=== PATIENT | male | born 1990 | race Caucasian/White ===

== ENCOUNTER 2016-04-16 12:47 | Emergency (ER) | payer SELFPAY ==
[2016-04-16] MEDS ORDERED: Benzocaine 20% Topical Spray UD MUCMEM ONE (13:30)
[2016-04-16] MEDS ORDERED: Lidocaine 2% Viscous Solution 15 ML Cup PO ONE (13:30)
--- NOTE | 2016-04-16 13:36 | EDM.PDOC ---
ED HPI GENERAL MEDICAL PROBLEM - General Chief Complaint: General Stated Complaint: ABSCESS TOOTH Time Seen by Provider: 04/16/16 13:01 Source of Information: Reports: Patient History Limitations: Reports: No limitations - History of Present Illness INITIAL COMMENTS - FREE TEXT/NARRATIVE: History of present illness: [] Patient has had 2 months of a dental abscess and dental pain. He has no money see a dentist and he has been coming here for pain medicine and antibiotics. Patient states he's been on antibiotics for 2 months but ran out. Denies any fevers, chills, facial swelling difficulty breathing or difficulty swallowing Review of systems: As per history of present illness and below otherwise all systems reviewed and negative. Past medical history: As per history of present illness and as reviewed below otherwise noncontributory. Surgical history: As per history of present illness and as reviewed below otherwise noncontributory. Social history: No reported history of drug or alcohol abuse. Family history: As per history of present illness and as reviewed below otherwise noncontributory. Physical exam: General: Well developed, well nourished in NAD HEENT: Atraumatic, normocephalic, pupils reactive, negative for conjunctival pallor or scleral icterus, mucous membranes moist, throat clear, neck supple, nontender, trachea midline. Poor dentition there is no edema, drainage or a erythema of the gums surrounding the tooth in question which is in his left lower molar Lungs: Clear to auscultation, breath sounds equal bilaterally, chest nontender. Heart: S1S2, regular, negative for clicks, rubs, or JVD. Abdomen: Soft, nondistended, nontender. Negative for masses or hepatosplenomegaly. Negative for costovertebral tenderness. Pelvis: Stable nontender. Genitourinary: Deferred. Rectal: Deferred. Extremities: Atraumatic, negative for cords or calf pain. Neurovascular unremarkable. Neuro: Awake, alert, oriented. Cranial nerves II through XII unremarkable. Cerebellum unremarkable. Motor and sensory unremarkable throughout. Exam nonfocal. Diagnostics: [] Therapeutics: [] Dental balls for pain control Impression: [] Multiple dental caries without abscess Plan: [] All of dentist Definitive disposition and diagnosis as appropriate pending reevaluation and review of above. dental Pain Score (Numeric/FACES): 9 - Related Data Allergies Allergy/AdvReac Type Severity Reaction Status Date / Time No Known Allergies Allergy Verified 04/16/16 12:56 Home Meds: Home Meds . [No Known Home Meds] 06/13/15 [History] Past Medical History HEENT History: Reports: None Cardiovascular History: Reports: Other (see below) Other Cardiovascular History: "bicuspid aortic valve" Gastrointestinal History: Reports: None Genitourinary History: Reports: None Psychiatric History: Reports: None Dermatologic History: Reports: Other (see below) Other Dermatologic History: scabies - Infectious Disease History Infectious Disease History: Reports: None - Past Surgical History HEENT Surgical History: Reports: None Respiratory Surgical History: Reports: None GI Surgical History: Reports: None Social & Family History - Family History Family Medical History: Noncontributory - Tobacco Use Smoking Status *Q: Current Every Day Smoker Years of Tobacco use: 3 Packs/Tins Daily: 0.5 - Recreational Drug Use Recreational Drug Use: No Drug Use in Last 12 Months: Yes Recreational Drug Type: Reports: Marijuana/Hashish Recreational Drug Use Frequency: Daily ED ROS GENERAL - Review of Systems Review Of Systems: See Below (History of present illness) ED EXAM, GENERAL - Physical Exam Exam: See Below (See history of present illness) Course - Vital Signs Last Recorded V/S: Last Vital Signs Temp 36.4 C 04/16/16 12:57 Pulse 77 04/16/16 12:57 Resp 18 04/16/16 12:57 BP 127/86 04/16/16 12:57 Pulse Ox 97 04/16/16 12:57 - Orders/Labs/Meds Meds: Medications Discontinued Medications Generic Name Dose Route Start Last Admin Trade Name Komal PRN Reason Stop Dose Admin Benzocaine 2 each 04/16/16 13:30 Hurricaine One 20% MUCMEM 04/16/16 13:31 ONETIME ONE Lidocaine HCl 15 ml 04/16/16 13:30 Xylocaine 2% Viscous PO 04/16/16 13:31 ONETIME ONE Departure - Departure Time of Disposition: 13:34 Disposition: Home, Self-Care 01 Condition: good Clinical Impression: Dental caries Forms: ED Department Discharge Additional Instructions: The following information is given to patients seen in the emergency department who are being discharged to home. This information is to outline your options for follow-up care. We provide all patients seen in our emergency department with a follow-up referral. The need for follow-up, as well as the timing and circumstances, are variable depending upon the specifics of your emergency department visit. If you don't have a primary care physician on staff, we will provide you with a referral. We always advise you to contact your personal physician following an emergency department visit to inform them of the circumstance of the visit and for follow-up with them and/or the need for any referrals to a consulting specialist. The emergency department will also refer you to a specialist when appropriate. This referral assures that you have the opportunity for follow-up care with a specialist. All of these measure are taken in an effort to provide you with optimal care, which includes your follow-up. Under all circumstances we always encourage you to contact your private physician who remains a resource for coordinating your care. When calling for follow-up care, please make the office aware that this follow-up is from your recent emergency room visit. If for any reason you are refused follow-up, please contact the [facility] Emergency Department at and asked to speak to the emergency department charge nurse. [facility] [address] [place] [phone]
[2016-04-16 15:41] VITALS: BP 123/65
== END 2016-04-16 14:11 | disposition home or self-care (01) ==
LOC: MW.ED 12:47
DX: K02.9 Dental caries, unspecified (principal); F17.210 Nicotine dependence, cigarettes, uncomplicated
CPT/HCPCS: 99282; A9270